=== PATIENT | female | born 2000 | race Caucasian/White ===

== ENCOUNTER 2023-03-10 23:15 | Emergency (ER) | payer MEDICAID ==
[~2023-03-10] VITALS: Ht 149.9 cm; Wt 56.9 kg
[2023-03-10 23:40] LABS: BASOPHILS % 0.6 % (0.0-2.0); EOSINOPHILS % 0.6 % (0.0-5.0); HEMATOCRIT. 44.9 % (36.0-48.0); HEMOGLOBIN. 15.2 g/dL (12.0-16.0); MEAN CORPUSCULAR HEMOGLOBIN 27.5 pg (28.0-32.0); MEAN CORPUSCULAR VOLUME 81.5 fL (81.0-99.0); MEAN PLATELET VOLUME 8.6 fl (7.4-10.4); MONOCYTES % 3.5 % (2.0-8.0); NEUTROPHILS % 85.3 % (40.0-76.0); PLATELET 259 x1000/uL (130-400); RED BLOOD CELL COUNT 5.51 mill/uL (4.2-5.4); RED CELL DISTRIBUTION WIDTH 13.4 % (11.6-14.6)
[2023-03-10 23:48] LABS: CHLORIDE 106 mEq/L (98-107)
[2023-03-11] VITALS: BP 109/79
[2023-03-11 00:27] LABS: CLARITY URINE CLOUDY (CLEAR); COLOR URINE YELLOW (YELLOW); KETONES URINE 2+ (NEGATIVE); LEUKOCYTE ESTERASE URINE 1+ (NEGATIVE); NITRITE URINE NEGATIVE (NEGATIVE); OCCULT BLOOD URINE NEGATIVE (NEGATIVE); PROTEIN URINE NEGATIVE (NEGATIVE); SPECIFIC GRAVITY URINE 1.024 (1.005-1.030)
[2023-03-11] MEDS ORDERED: PROT40 MT (04:13)
[2023-03-11] MEDS ORDERED: CEPH500C2 MT (04:13)
== END 2023-03-11 05:12 | disposition home or self-care (01) ==
LOC: ER 23:15
DX: R10.13 Epigastric pain (principal); E78.00 Pure hypercholesterolemia, unspecified
CPT/HCPCS: 36415; 80053; 81003; 81025; 85025; 99283